=== PATIENT | female | born 1950 | race Caucasian/White ===

== ENCOUNTER 2021-08-01 13:35 | Emergency (ER) | payer MEDICARE ==
[~2021-08-01] VITALS: Ht 149.9 cm; Wt 50.0 kg
[2021-08-01] MEDS ORDERED: NS 500 ML IV ONE (13:50)
--- NOTE | 2021-08-01 14:05 | REP ---
INDICATION: headache COMPARISON: None. TECHNIQUE: Axial noncontrast images from the skull base to the thoracic inlet with coronal reformations. This CT examination was performed using the following dose reduction techniques: Automated exposure control, adjustment of mA and/or kv according to the patient's size, and use of iterative reconstruction technique. FINDINGS: Age-related involutional changes are appreciated. The ventricles and sulci are symmetric. Perez-white differentiation is maintained. There is no evidence for acute intracranial hemorrhage, mass/mass effect, pathology or infarction. No extra-axial fluid collection. Calvarium is intact. Paranasal sinuses and mastoid air cells are clear. IMPRESSION: Age-related involutional changes. No acute intracranial hemorrhage, infarction, or mass/mass effect. <Electronically signed by Mauro Weller > 08/01/21 [id number]
[2021-08-01 14:24] LABS: BASO % 0.6 % (0.0-1.0); EOS # 0.2 10^3/uL (0.0-0.5); EOS % 3.2 % (0.0-3.0); HEMATOCRIT 43.3 % (36.0-47.0); HEMOGLOBIN 14.4 g/dl (12.0-15.5); LYMPH # 1.9 10^3/uL (1.5-5.0); LYMPH % 30.3 % (24.0-44.0); MEAN CORPUSCULAR HEMOGLOBIN 29.6 pg (27.0-33.0); MEAN CORPUSCULAR HGB CONC 33.3 g/dl (32.0-36.5); MEAN CORPUSCULAR VOLUME 89.1 fl (80.0-96.0); MONO # 0.6 10^3/uL (0.0-0.8); NEUTROPHILS # 3.5 10^3/uL (1.5-8.5); NEUTROPHILS % 55.6 % (36.0-66.0); PLATELET COUNT, AUTOMATED 265 10^3/uL (150-450); RED BLOOD COUNT 4.86 10^6/uL (4.00-5.40); WHITE BLOOD COUNT 6.3 10^3/uL (4.0-10.0)
[2021-08-01 14:50] VITALS: BP 163/87
[2021-08-01 14:58] LABS: CK-MB VALUE MASS 1.3 NG/ML (<3.6); MB/CK RELATIVE INDEX 1.31 (< OR =4)
[2021-08-01 15:05] LABS: ALBUMIN 3.5 GM/DL (3.2-5.2); ALT/SGPT 19 U/L (12-78); BILIRUBIN,DIRECT < 0.1 MG/DL (0.0-0.2); BILIRUBIN,TOTAL 0.3 MG/DL (0.2-1.0); BLOOD UREA NITROGEN 18 MG/DL (7-18); CALCIUM LEVEL 8.8 MG/DL (8.8-10.2); CARBON DIOXIDE LEVEL 25 MEQ/L (21-32); CHLORIDE LEVEL 109 MEQ/L (98-107); GLUCOSE, FASTING 107 MG/DL (70-100); LIPASE 134 U/L (73-393); POTASSIUM SERUM 4.2 MEQ/L (3.5-5.1); SODIUM LEVEL 144 MEQ/L (136-145); THYROID STIMULATING HORMONE 0.807 uIU/ML (0.358-3.740); TOTAL PROTEIN 7.1 GM/DL (6.4-8.2)
--- NOTE | 2021-08-01 18:03 | ECGEPIP ---
[facility] - ED Test Date: 2021-08-01 Pat Name: AVTAR MOORE Department: Room: - Gender: Female Department Operations Manager: EDI : 1950 Requested By: Michelle Dominguez Order Number: [id number] Reading MD: Michelle Dominguez Measurements Intervals [place] Rate: 67 P: 61 MT: 126 QRS: -42 QRSD: 76 T: 58 QT: 422 QTc: 445 Interpretive Statements Normal sinus rhythm Left axis deviation Low voltage QRS Cannot rule out Anterior infarct , age undetermined NSTTW abnormalities No prior Electronically Signed on 08-01-2021 18:03:28 EST by Michelle Dominguez
== END 2021-08-01 16:15 | disposition home or self-care (01) ==
LOC: M ED 13:35
DX: R42 Dizziness and giddiness (principal)